=== PATIENT | male | born 1975 | race Caucasian/White ===

== ENCOUNTER 2022-11-07 14:53 | Outpatient (CLI) | payer BC, SELFPAY ==
[2022-11-07 15:47] LABS: Influenza A QL RT-PCR Negative (Negative); Influenza B QL RT-PCR Negative (Negative); SARS-CoV-2 RNA PCR Negative
== END 2022-11-07 14:54 | disposition home or self-care (01) ==
LOC: ANHLAB 15:01
PROVIDERS: PCP Family Medicine; Visit Provider Physician Assistant
DX: R52 Pain, unspecified (principal); R50.9 Fever, unspecified; Z20.822 Contact with and (suspected) exposure to COVID-19
CPT/HCPCS: 87636

== ENCOUNTER 2023-01-04 00:47 | Day surgery (SDC) | payer BC, SELFPAY ==
[2022-12-20 15:39] VITALS: BMI 36.0
--- NOTE | 2023-01-03 19:26 | P.HP_ITS ---
History of Present Illness History of Present Illness Consent: Risks, benefits, and alternatives have been discussed and questions answered. Patient agrees to proceed with procedure. Chief complaint: neoplasm screening Narrative: Jared Lomeli is a 47 year old male here for colon cancer screening Review of Systems Review of Systems: All systems reviewed & are unremarkable except as noted in HPI and below PMFSH Past Medical History Medical History Dyslipidemia Family history of prostate cancer in father GERD (gastroesophageal reflux disease) Obesity Surgical History Surgical History History of left knee surgery 1995 and 1999 for meniscus repair Family History Family History Mother Gastric cancer Heart disease Sibling Patient's sister is in good health Father Malignant neoplasm of prostate Social History Social History Smoking status: Former smoker Tobacco type: cigarettes Second hand tobacco smoke exposure: No Smoking end date: 12/20/19 Alcohol intake: never Substance use: never Substance use type: does not use Lack of Transportation: No Lack of Food: Never True Current Housing: I Have Housing Concerned About Future Housing: No Difficulty Paying Gas/Electric Bills: No Difficulty Paying for Meds: No Currently Unemployed: No Education: Decline to Answer Difficulty w/ Childcare or Family Care: No Living arrangements: with family Additional living arrangements comments: and son Occupation/Education: occupation Gender identity (if verbalized by the patient): Male Sexual Orientation (if Verbalized by the Patient): Straight or Heterosexual Spiritual care concerns: No Agree to blood products: Yes Meds Home Medications and Allergies Home Medications Medication Instructions Recorded Confirmed Type omeprazole 20 mg capsule,delayed 20 mg PO DAILY 12/10/22 01/04/23 History release Allergies Allergy/AdvReac Type Severity Reaction Status Date / Time codeine Allergy Unknown ITCHING Verified 01/04/23 08:17 Penicillins Allergy Unknown puritis Verified 01/04/23 08:17 Exam Resp: Auscultation: clear to auscultation bilaterally Cardio: Rate: regular rate Rhythm: regular rhythm GI: GI Palp: Yes Soft to palpation and No Tenderness to palpation present (GI) Assessment and Plan Assessment and plan (1) Colon cancer screening: Code(s): Z12.11 - Encounter for screening for malignant neoplasm of colon Status: Acute Assessment and Plan: Colonoscopy with possible biopsy or polypectomy or cautery or injection of subs tances.
[2023-01-04 08:07] VITALS: BP 130/89; PULSE 83; RESP 18; TEMP 35.8; O2SAT 98; BMI 35.4
[2023-01-04] MEDS: LACTATED RINGERS 1,000 ML 150 ML IV CONT (08:31)
--- NOTE | 2023-01-04 08:38 | WPDANESEPPF ---
Anes - Initial Pre Proc Eval Procedure: Operation Date: 01/04/23 09:30 Proposed Procedures p Screening Colonoscopy - José Jason MD Date/Time: 01/04/23 08:38 Surgeon: José Jason MD Pre Op Diagnosis: neoplasm screening Patient Data Age: 47 Gender: M Height: 1.88 m Weight: 125.2 kg Last Vital Signs Temp 35.8 C L 01/04/23 08:07 Pulse 83 01/04/23 08:07 Resp 18 01/04/23 08:07 BP 130/89 01/04/23 08:07 Pulse Ox 98 01/04/23 08:07 O2 Del Method Room Air 01/04/23 08:07 Allergies Allergy/AdvReac Type Severity Reaction Status Date / Time codeine Allergy Unknown ITCHING Verified 01/04/23 08:17 Penicillins Allergy Unknown puritis Verified 01/04/23 08:17 Home Medications Medication Instructions Recorded Confirmed Type omeprazole 20 mg capsule,delayed 20 mg PO DAILY 12/10/22 01/04/23 History release Patient hx anesthesia problems: none Family hx anesthesia problems: none Results Review: All pre-operative results and documents have been reviewed as part of the pre-operative evaluation. [facility] Past Medical History Medical History (Updated 01/04/23 @ 08:38 by Martínez Hale MD) Dyslipidemia Family history of prostate cancer in father GERD (gastroesophageal reflux disease) Obesity Surgical History Surgical History History of left knee surgery 1995 and 1999 for meniscus repair Family History Family History Mother Gastric cancer Heart disease Sibling Patient's sister is in good health Father Malignant neoplasm of prostate Social History Social History Smoking status: Former smoker Tobacco type: cigarettes Second hand tobacco smoke exposure: No Smoking end date: 12/20/19 Alcohol intake: never Substance use: never Substance use type: does not use Lack of Transportation: No Lack of Food: Never True Current Housing: I Have Housing Concerned About Future Housing: No Difficulty Paying Gas/Electric Bills: No Difficulty Paying for Meds: No Currently Unemployed: No Education: Decline to Answer Difficulty w/ Childcare or Family Care: No Living arrangements: with family Additional living arrangements comments: and son Occupation/Education: occupation Gender identity (if verbalized by the patient): Male Sexual Orientation (if Verbalized by the Patient): Straight or Heterosexual Spiritual care concerns: No Agree to blood products: Yes Anes - Eval Final PreProcedure Day of Procedure 01/04/23 08:38 Patient weight: obese Heart: regular rate and rhythm Lungs: clear to auscultation Airway: Mallampati scale class II Neurological: alert and oriented Last oral intake: >/= 8 hours ASA classification: II Emergent: no Anesthetic plan: proceed Anesthesia type and monitoring: general GIVS and standard monitoring Results Review: All pre-operative results and documents have been reviewed as part of the pre-operative evaluation. Informed Consent: The patient's anesthetic plan and its attendant risks and benefits were discussed with the patient/family/POA. Questions were solicited and answers provided to the satisfaction of the patient/family/POA.
[2023-01-04 09:42] VITALS: BP 109/68; PULSE 73; RESP 16; O2SAT 95
[2023-01-04 09:52] VITALS: BP 114/73; PULSE 67; RESP 20; O2SAT 97
[2023-01-04 10:02] VITALS: BP 127/87; PULSE 71; RESP 20; O2SAT 95
== END 2023-01-04 10:10 | disposition home or self-care (01) ==
PROVIDERS: PCP Family Medicine; Visit Provider Internal Medicine Gastroenterology
PROC: 0DJD8ZZ Inspection of Lower Intestinal Tract, Via Natural or Artificial Opening Endoscopic (ICD-10-PCS; CPT 45378; principal; 2023-01-04 09:30)
DX: Z12.11 Encounter for screening for malignant neoplasm of colon (principal); K21.9 Gastro-esophageal reflux disease without esophagitis; Z87.891 Personal history of nicotine dependence; E66.9 Obesity, unspecified; Z68.35 Body mass index [BMI] 35.0-35.9, adult
CPT/HCPCS: 45378; J2704; J7120

== ENCOUNTER → 2024-01-02 09:00 | Outpatient (CLI) | payer BC, SELFPAY ==
--- NOTE | 2024-02-04 10:16 | SLEEP ---
pt instructed on using the Watch Pat Disposable device on 01/02/24. Pt was notified on 01/22/24, stated he was performing the study that night. patient was called on 01/28/24 and he stated to the tech,that he was not going to perform the study and would bring the device back to the sleep center. He brought it back on 01/31/24.
== END ==
PROVIDERS: PCP Family Medicine; Visit Provider Family Medicine
DX: R40.0 Somnolence (principal); R29.818 Other symptoms and signs involving the nervous system
CPT/HCPCS: 99199

== ENCOUNTER 2024-02-13 10:19 | Outpatient (CLI) | payer BC, SELFPAY ==
--- NOTE | ~2024-02-13 | NM_ITS ---
EXAMINATION: NM stress w perf spect multi DATE: 02/13/2024 13:53 INDICATION: Chest pain. TECHNIQUE: Rest images were obtained following intravenous administration of 9 mCi Tc99m tetrofosmin (Myoview). The patient performed an exercise activity. At peak exercise, 28.8 mCi Tc99m tetrofosmin ( Myoview) was administered intravenously, and stress images were obtained. Data was reconstructed into short axis and horizontal and vertical long axis SPECT images. Gated SPECT images were also obtained . COMPARISON: None. FINDINGS: There is no definite reversible or fixed perfusion abnormality to suggest ischemia or infar ction. There is no segmental wall motion abnormality. Left ventricular ejection fraction measures 5 7%. IMPRESSION: 1. No definite ischemia or infarct. 2. Normal left ventricular ejection fraction measuring 57%. Reviewed, dictated and finalized at location A.
--- NOTE | 2024-02-13 10:38 | EST_ITS ---
Patient Info Name: Jared Lomeli Age: 48 years : 1975 Gender: Male Ht: 74 in Wt: 290 lbs BSA: 2.67 m2 HR: 61 bpm BP: 127 / 77 mmHg Heart Rhythm: Sinus Rhythm Exam Date: 02/13/2024 11:37 AM Exam Location: Echo Lab Patient Status: Outpatient Admit Date: 02/13/2024 Staff Ordering Physician: Juno Vazquez MD Attending Provider: Juno Vazquez MD Exercise Technologist: Cecille Paez CT Exercise Physician: Andrea Arce DO Exam Type: CA stress test treadmill w NM Study Info Indications R07.89 - Other chest pain A nuclear stress test was performed. Summary 1. 1. Negative Lorenzo exercise stress test for ischemic ST changes by ECG criteria. 2. 2. Reduced functional capacity, achieving 9 METs of workload. 3. 3. Appropriate HR response to exercise. 4. 4. Appropriate HR recovery at 1 minute post exercise. 5. 5. Nuclear scan to follow and will be reported separately. Please correlate with it. 6. 6. Patient informed of the above results. Protocol: Lorenzo Stress ECG Details Stage: REST Duration (min): 1 min : 8 sec Speed (mph): 0.0 Grade (%): 0 HR (bpm): 63 SBP (mmHg): 127 DBP (mmHg): 77 METS: --- Stage: REST Duration (min): 6 min : 56 sec Speed (mph): 0.0 Grade (%): 0 HR (bpm): 73 SBP (mmHg): 127 DBP (mmHg): 77 METS: --- Stage: STAGE 1 Duration (min): 1 min : 0 sec Speed (mph): 1.7 Grade (%): 10 HR (bpm): 104 SBP (mmHg): 127 DBP (mmHg): 77 METS: --- Stage: STAGE 1 Duration (min): 2 min : 0 sec Speed (mph): 1.7 Grade (%): 10 HR (bpm): 112 SBP (mmHg): 127 DBP (mmHg): 77 METS: --- Stage: STAGE 1 Duration (min): 3 min : 0 sec Speed (mph): 1.7 Grade (%): 10 HR (bpm): 114 SBP (mmHg): 174 DBP (mmHg): 84 METS: --- Stage: STAGE 2 Duration (min): 1 min : 0 sec Speed (mph): 2.5 Grade (%): 12 HR (bpm): 128 SBP (mmHg): 174 DBP (mmHg): 84 METS: --- Stage: STAGE 2 Duration (min): 2 min : 0 sec Speed (mph): 2.5 Grade (%): 12 HR (bpm): 136 SBP (mmHg): 167 DBP (mmHg): 89 METS: --- Stage: STAGE 2 Duration (min): 3 min : 0 sec Speed (mph): 2.5 Grade (%): 12 HR (bpm): 144 SBP (mmHg): 167 DBP (mmHg): 89 METS: --- Stage: STAGE 3 Duration (min): 1 min : 0 sec Speed (mph): 3.4 Grade (%): 14 HR (bpm): 154 SBP (mmHg): 199 DBP (mmHg): 91 METS: --- Stage: STAGE 3 Duration (min): 1 min : 15 sec Speed (mph): 3.4 Grade (%): 14 HR (bpm): 154 SBP (mmHg): 199 DBP (mmHg): 91 METS: --- Stage: RECOVERY Duration (min): 0 min : 44 sec Speed (mph): 0.0 Grade (%): 0 HR (bpm): 137 SBP (mmHg): 199 DBP (mmHg): 91 METS: --- Stage: RECOVERY Duration (min): 1 min : 44 sec Speed (mph): 0.0 Grade (%): 0 HR (bpm): 118 SBP (mmHg): 199 DBP (mmHg): 91 METS: --- Stage: RECOVERY Duration (min): 2 min : 44 sec Speed (mph): 0.0 Grade (%): 0 HR (
== END 2024-02-13 10:20 | disposition home or self-care (01) ==
LOC: ANHCARD 10:21
PROVIDERS: PCP Family Medicine; Visit Provider Family Medicine
DX: E78.5 Hyperlipidemia, unspecified (principal); R07.9 Chest pain, unspecified
CPT/HCPCS: 78452; 93017; A9502

== ENCOUNTER 2024-05-26 14:30 | Emergency (ER) | payer OTHER, SELFPAY ==
--- NOTE | ~2024-05-26 | XR_ITS ---
EXAMINATION: XR ribs RT 2V w CXR 2V DATE: 05/26/2024 15:34 INDICATION: Chest injury. TECHNIQUE: Frontal and lateral views of the chest and 2 views on 3 radiographs of the right ribs were obtained. COMPARISON: Chest 2 views 02/22/2012 FINDINGS: CHEST TWO VIEWS: There is no pneumonia, pleural effusion, or pneumothorax. The heart size is normal. RIGHT RIBS: There is no rib fracture. IMPRESSION: 1. No rib fracture. Reviewed, dictated and finalized at location E. IMPRESSION: 1. No rib fracture.
[2024-05-26 15:03] VITALS: BP 144/83; PULSE 72; RESP 18; TEMP 36.1; O2SAT 99
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
== END 2024-05-26 16:30 | disposition home or self-care (01) ==
PROVIDERS: Emergency Provider Nurse Practitioner Family; PCP Family Medicine
DX: S20.211A Contusion of right front wall of thorax, initial encounter (principal); E78.5 Hyperlipidemia, unspecified; E66.9 Obesity, unspecified; Z68.34 Body mass index [BMI] 34.0-34.9, adult; K21.9 Gastro-esophageal reflux disease without esophagitis; Z87.891 Personal history of nicotine dependence; V84.0XXA Driver of special agricultural vehicle injured in traffic accident, initial encounter
CPT/HCPCS: 71046; 71100; 99283

== ENCOUNTER 2025-04-13 10:57 | Outpatient (CLI) | payer BC, SELFPAY ==
--- NOTE | 2025-04-28 20:04 | P.SLEEP_ITS ---
Sleep Study Date of Study: 04/13/25 Ordering Provider: Shalini Vazquez MD Interpreting Physician: Brenda Warren MD Sleep Study Type: Split Polysomnogram Height: 1.88 m Weight: 136.078 kg Body Mass Index: 38.5 Neck Circumference (inches): 19 [place]: 9 Reason for Sleep Study Tired after sleeping, snoring, takes naps Sleep History Jared Lomeli is a 49-year-old man with loud snoring and non-restorative sleep. He rarely awakens from sleep feeling short of breath. He occasionally wakes at night with heartburn, belching or coughing.??He frequently snores, and frequently snores loudly enough that others complain. He occasionally has trouble sleeping when he has a cold. He rarely wakes up gasping for breath during the night. He rarely has breathing problems at night observed by others. He never sweats excessively at night. He never notices his heart pounding or beating irregularly during the night. He occasionally falls asleep during the day. He never falls asleep involuntarily, never falls asleep while driving. He never experiences loss of muscle tone with strong emotion. He never has daytime difficulty at work due to excessive sleepiness. He never feels paralyzed on waking or falling asleep. He never experiences vivid dreams upon waking or falling asleep. He never feels afraid of going to sleep. He never has nightmares. He occasionally recalls his dreams. He frequently has thoughts racing through his mind. He never feels sad or depressed. He occasionally feels anxiety. He occasionally notices parts of his body jerk. He never kicks during the night. He occasionally feels crawling or aching feelings in his legs. He rarely feels leg pain at night. He never has morning jaw pain, never grinds his teeth at night. He occasionally feels bothered by pain during the day, never awakened by pain during the night. He frequently wakes up feeling stiff in the morning, and he frequently wakes feeling sore or achy. He occasionally awakens with pain in his neck, spine, or joints. He has fatigue. Normal bedtime is 9:00 p.m., falling asleep within a half hour, waking 5 times at night, tossing and turning, returning to sleep within a few seconds. Wake time is 4:30 a.m.. He typically gets between 6 and 8 hours of sleep per night. He takes naps in the day, and a short nap lasting 10 to 15 minutes may be refreshing. He is drowsy for 3 hours after waking, and feels better in the afte rnoon compared to other times of day. Habits:??Tobacco:quit 3 months ago Caffeine:3 per day Alcohol: none Recreational substances: none [facility] Past Medical History Medical History Migraine without aura Family history of gastric cancer mother Obesity Family history of prostate cancer in father Dyslipidemia GERD (gastroesophageal reflux disease) Surgical History Surgical History History of left knee surgery 1995 and 1999 for meniscus repair Family History Family History Mother Gastric cancer Heart disease Sibling Patient's sister is in good health Father Malignant neoplasm of prostate Social History Social History Smoking status: Former smoker Tobacco type: cigarettes Second hand tobacco smoke exposure: No Smoking end date: 12/01/19 Alcohol intake: never Substance use: never Substance use type: does not use Lack of Transportation: No Lack of Food: Never True Current Housing: I Have Housing Concerned About Future Housing: No Difficulty Paying Gas/Electric Bills: No Difficulty Paying for Meds: No Currently Unemployed: No Education: Decline to Answer Difficulty w/ Childcare or Family Care: No Living arrangements: with family Additional living arrangements comments: and son Occupation/Education: occupation Gender identity (if verbalized by the patient): Male Sexual Orientation (if Verbalized by the Patient): Straight or Heterosexual Spiritual care concerns: No Agree to blood products: Yes Medications Home Medications ?Medication ?Instructions ?Recorded ?Confirmed ?Type omeprazole 20 mg capsule,delayed 20 mg PO DAILY 12/10/22 04/14/25 History release rizatriptan 10 mg disintegrating See Rx Instructions PO .COMPLEX #7 12/11/23 04/14/25 Rx tablet tabs hydroxyzine HCl 25 mg tablet See Rx Instructions PO QHS PRN 04/09/25 04/14/25 Rx insomnia #90 tabs Sleep Procedure A full night polysomnogram using the [employer] SleepTrutap multi-channel system recorded the standard physiologic parameters including EEG, EOG, submentalis EMG, anterior tibialis EMG, EKG, body position, nasal and oral airflow using nasal pressure sensor and thermistor. Respiratory parameters of chest and abdominal movements were recorded with Respiratory Inductance Plethysmography belts. Oxygen saturation was recorded by pulse oximetry. Video monitoring was also performed. Sleep stages, periodic limb movements, and EEG arousals were scored in 30 second epochs according to the criteria of the AASM Scoring Manual. The Apnea-Hypopnea Index was calculated using [facility] guidelines for definition of hypopnea with 4% O2 desaturations while scoring respiratory events, He self administered hydroxyzine 25 mg at the start of the study. The patienet met criteria to start CPA with a baseline apnea hypopnea index of 78.6 and desaturation to 72%. He used a medium ResMed AirFit F30i full face mask and heated humidity, started at 5 cm, titrated to 7 cm, 9 cm, 11 and 13 cm. At CPAP 13 cm, he spent 84.5 minutes on bed, 4.5 minutes awake, 54.5 minutes in NREM, and 25.5 minutes in REM. Sleep efficiency was 94.7%. THe residual AHI was 1.5 and the lowest saturation was 93%. He had REM in the right lateral position at CPAP 13. He had supine REM on CPAP 11 cm. He had increased leg movements during the titration which is often seen as a response to starting positive airway pressure, called CPAP kick. This resolves with treatment within a month. Sleep Architecture During the diagnostic portion of the study, the total recording time was 162.8 minutes. The total sleep time was 132.0 minutes. Sleep latency was 5.8 minutes. REM latency was 116.0 minutes. Sleep Efficiency was 81.1%. The patient had 27 awakenings for an awakening index of 12.3. Wake after sleep onset time was 25.0 minutes. The patient spent 43.5 minutes, 33.0% of total sleep time in Stage N1. The patient spent 66.5 minutes, 50.4% in Stage N2. The patient spent 2.0 minutes, 1.5% in Stage N3. The patient spent 20.0 minutes, 15.2% in Stage REM sleep. At 11:54:33 PM the patient was placed on PAP treatment and was titrated between CPAP 5 and 13 cm, see procedure note. During the treatment portion of the study, the total recording time was 306.9 minutes. The total sleep time was 283.0 minutes. Sleep latency was 11.5 minutes. REM latency was 48.5 minutes. Sleep Efficiency was 92.2%. Wake after Sleep Onset time was 12.0 minutes. The patient spent 12.0 minutes, 4.2% of total sleep time in Stage N1. The patient spent 126.0 minutes, 44.5% in Stage N2. The patient spent 59.5 minutes, 21.0% in Stage N3. The patient spent 85.5 minutes, 30.2% in Stage REM. Respiratory Analysis During the diagnostic portion of the study, the patient had 159 hypopneas, 15 obstructive apneas, 1 mixed apnea, and 1 central apnea for an overall Apnea Hypopnea Index of 78.6 events per hour. The REM Apnea Hypopnea Index was 54.0. The NREM Apnea Hypopnea Index was 83.0. The patient had a Central Apnea Hypopnea Index of 0.5. There were no Respiratory Effort Related Arousals. The Respiratory Disturbance Index is 80.5 events per hour. There was no evidence of Bonifacio- Olivares Respirations. During the treatment portion of the study, the patient had 40 hypopneas, no obstructive apneas, 1 mixed apnea, and 3 central apneas for an overall Apnea Hypopnea Index of 9.3 events per hour. The REM Apnea Hypopnea Index was 6.3. The NREM Apnea Hypopnea Index was 10.6. The patient had a Central Apnea Hypopnea Index of 0.6. There were no Respiratory Effort Related Arousals. The Respiratory Disturbance Index is 11.4 events per hour. There was no evidence of Bonifacio- Olivares Respirations. Arousals During the diagnostic portion of the study, there were a total of 125 arousals for an arousal index of 56.8. There were 82 respiratory arousals for an index of 37.3. There were no periodic limb movement arousals. There was 1 isolated limb movement arousal for an index of 0.5. There were 42 spontaneous arousals for an index of 19.1. During the treatment portion of the study, there were a total of 62 arousals for an index of 13.1. There were 11 respiratory arousals for an index of 2.3. There were 17 periodic limb movement arousals for an index of 3.6. There were 2 isol ated limb movement arousals for an index of 0.4. There were 33 spontaneous arousals for an index of 7.0. Periodic Limb Movements During the diagnostic portion of the study, the patient had 4 isolated limb movements with an index of 1.8. The patient had no periodic limb movements with an index of -. The patient had a total of 4 limb movements with a total limb movement index of 1.8. During the treatment portion of the study, the patient had 19 isolated limb movements with an index of 4.0. The patient had 328 periodic limb movements with an index of 69.5. The patient had a total of 347 limb movements with a total limb movement index of 73.6. Oximetry Data During the diagnostic portion of the study, the patient had an average oxygen saturation of 91.7 in wake with a minimum oxygen saturation of 77% and a maximum oxygen saturation of 99%. The patient had an average oxygen saturation of 90.3% in sleep with a minimum oxygen saturation of 72.0% and a maximum oxygen saturation of 99.0%. The patient had 190 oxygen desaturations resulting in an Oxygen Desaturation Index of 86.4. The patient spent 48.7 minutes, 29,9% of total sleep time with an oxygen saturation less than 88%. During the treatment portion of the study, the patient had an average oxygen saturation of 95.3% in wake with a minimum oxygen saturation of 89% and a maximum oxygen saturation of 98%. The patient had an average oxygen saturation of 93.3% in sleep with a minimum oxygen saturation of 81% and a maximum oxygen s aturation of 98%. The patient had 60 oxygen desaturations resulting in an Oxygen Desaturation Index of 12.7. The patient spent 5.8 minutes, 1.9% of total sleep time with an oxygen saturation less than 88%. Snoring Profile Snoring was present on the baseline, eliminated during the titration. Cardiac Profile During the diagnostic portion of the study, the EKG showed normal sinus rhythm. The average pulse rate was 67 bpm. The minimum pulse rate was 47 bpm. The maximum pulse rate was 96 bpm. No arrhythmias noted. During the treatment portion of the study, the EKG showed normal sinus rhythm. The average pulse rate was 71 bpm, minimum pulse rate was 57 bpm, maximum pulse rate was 102 bpm. No arrhythmias noted. EEG Profile EEG was unremarkable, no evidence of seizures. Assessment and Plan Assessment and Plan (1) Obstructive sleep apnea: Code(s): G47.33 - Obstructive sleep apnea (adult) (pediatric) Status: Acute Assessment and Plan: This split night sleep study April 13, 2025 shows extremely severe obstructive sleep apnea, the baseline apnea hypopnea index is 78.6 with desaturation to 72%, worse in the supine position, successfully treated with CPAP 13 cm using a medium ResMed AirFit F30i full face mask and heated humidity. At CPAP 13 cm, he spent 84.5 minutes on bed, 4.5 minutes awake, 54.5 minutes in NREM, and 25.5 minutes in REM. Sleep efficiency was 94.7%. THe residual AHI was 1.5 and the lowest saturation was 93%. He had REM in the right lateral position at CPAP 13. He had supine REM on CPAP 11 cm. He had increased leg movements during the titration which is often seen as a response to starting positive airway pressure, called CPAP kick. This often resolves with treatment within a month. The patient should be prescribed this ResMed equipment as well as tubing, filters and reservoir. This should be used with all episodes of sleep. Compliance should be reviewed within 31-90 days of starting therapy for usage greater than 4 hours per night greater than 70% of the nights. The patient should be asked about symptoms such as excessive daytime sleepiness, quality of sleep, decreased nocturia, increased mental functioning such as memory, mood, and concentration. BMI is 38.5. Weight management is advised. Clinical data suggests that weight loss of 10% can reduce the severity of respiratory events and snoring and improve AHI by as much as 25%. Data The data obtained during this sleep study is adequate for interpretation. Certification This sleep study has been reviewed by a board certified sleep medicine physician.
[2025-05-06 13:37] VITALS: BMI 38.5
== END 2025-04-14 05:40 | disposition home or self-care (01) ==
LOC: ANHCSM 11:02
PROVIDERS: PCP Family Medicine; Visit Provider Family Medicine
DX: G47.33 Obstructive sleep apnea (adult) (pediatric) (principal)
CPT/HCPCS: 95811

== ENCOUNTER 2025-07-29 00:11 | Day surgery (SDC) | payer BC, SELFPAY ==
[2025-07-14 13:16] VITALS: BMI 38.5
[2025-07-29 07:48] VITALS: BP 134/92; PULSE 88; RESP 16; TEMP 36.1; O2SAT 99
[2025-07-29 07:49] VITALS: BMI 39.4
[2025-07-29] MEDS: LACTATED RINGERS 1,000 ML 150 ML IV CONT (07:56)
--- NOTE | 2025-07-29 08:05 | P.PNAN_ITS ---
Anes - Initial Pre Proc Eval Procedure: Operation Date: 07/29/25 09:00 Proposed Procedures p Esophagogastroduodenoscopy - David Fofana MD Date/Time: 07/29/25 08:05 Surgeon: David Fofana MD Pre Op Diagnosis: Family Hx of malignant neoplasm of digestive organ Patient Data Age: 49 Gender: M Height: 1.88 m Weight: 139.2 kg Last Vital Signs Temp 36.1 C L 07/29/25 07:48 Pulse 88 07/29/25 07:48 Resp 16 07/29/25 07:48 BP 134/92 H 07/29/25 07:48 Pulse Ox 99 07/29/25 07:48 O2 Del Method Room Air 07/29/25 07:48 Allergies Allergy/AdvReac Type Severity Reaction Status Date / Time codeine Allergy Unknown ITCHING Verified 07/29/25 07:46 Penicillins Allergy Unknown puritis Verified 07/29/25 07:46 Home Medications ?Medication ?Instructions ?Recorded ?Confirmed ?Type omeprazole 20 mg capsule,delayed 20 mg PO DAILY 07/29/25 History release rizatriptan 10 mg disintegrating See Rx Instructions P O .COMPLEX #7 12/11/23 07/14/25 Rx tablet tabs hydroxyzine HCl 25 mg tablet See Rx Instructions PO QH S PRN 04/09/25 07/14/25 Rx insomnia #90 tabs CPAP #1 ea 05/06/25 07/14/25 Rx Patient hx anesthesia problems: none Family hx anesthesia problems: none Results Review: All pre-operative results and documents have been reviewed as part of the pre-operative evaluation. [facility] Past Medical History Medical History (Updated 07/28/25 @ 14:24 by Bradly Decker DO) LAUREL (obstructive sleep apnea) Migraine without aura Family history of gastric cancer mother Obesity Family history of prostate cancer in father Dyslipidemia GERD (gastroesophageal reflux disease) Surgical History Surgical History History of left knee surgery 1995 and 1999 for meniscus repair Family History Family History Mother Gastric cancer Heart disease Sibling Patient's sister is in good health Father Malignant neoplasm of prostate Social History Social History Smoking status: Former smoker Tobacco type: cigarettes Second hand tobacco smoke exposure: No Smoking end date: 12/01/19 Alcohol intake: never Substance use: never Substance use type: does not use Lack of Transportation: No Lack of Food: Never True Current Housing: I Have Housing Concerned About Future Housing: No Difficulty Paying Gas/Electric Bills: No Difficulty Paying for Meds: No Currently Unemployed: No Education: Decline to Answer Difficulty w/ Childcare or Family Care: No Living arrangements: with family Additional living arrangements comments: and son Occupation/Education: occupation Gender identity (if verbalized by the patient): Male Sexual Orientation (if Verbalized by the Patient): Straight or Heterosexual Spiritual care concerns: No Agree to blood products: Yes Anes - Eval Final PreProcedure Day of Procedure 07/29/25 08:05 Patient weight: obese Heart: regular rate and rhythm Lungs: clear to auscultation Airway: Mallampati scale class II Neurological: alert and oriented Last oral intake: >/= 8 hours ASA classification: III Emergent: no Anesthetic plan: proceed Anesthesia type and monitoring: general GIVS and standard monitoring Results Review: All pre-operative results and documents have been reviewed as part of the pre- operative evaluation. Informed Consent: The patient's anesthetic plan and its attendant risks and benefits were discussed with the patient/family/POA. Questions were solicited and answers provided to the satisfaction of the patient/family/POA.
--- NOTE | 2025-07-29 08:46 | PM.HPGS ---
History of Present Illness History of Present Illness Consent: Risks, benefits, and alternatives have been discussed and questions answered. Patient agrees to proceed with procedure. Chief complaint: Family Hx of malignant neoplasm of digestive organ Narrative: Jared Lomeli is a 49 year old male here for first egd, h/o bloating, also mother had gastric cancer Review of Systems Review of Systems: All systems reviewed & are unremarkable except as noted in HPI and below PMFSH Past Medical History Medical History (Updated 07/28/25 @ 14:24 by Bradly Decker DO) LAUREL (obstructive sleep apnea) Migraine without aura Family history of gastric cancer mother Obesity Family history of prostate cancer in father Dyslipidemia GERD (gastroesophageal reflux disease) Surgical History Surgical History History of left knee surgery 1995 and 1999 for meniscus repair Family History Family History Mother Gastric cancer Heart disease Sibling Patient's sister is in good health Father Malignant neoplasm of prostate Social History Social History Smoking status: Former smoker Tobacco type: cigarettes Second hand tobacco smoke exposure: No Smoking end date: 12/01/19 Alcohol intake: never Substance use: never Substance use type: does not use Lack of Transportation: No Lack of Food: Never True Current Housing: I Have Housing Concerned About Future Housing: No Difficulty Paying Gas/Electric Bills: No Difficulty Paying for Meds: No Currently Unemployed: No Education: Decline to Answer Difficulty w/ Childcare or Family Care: No Living arrangements: with family Additional living arrangements comments: and son Occupation/Education: occupation Gender identity (if verbalized by the patient): Male Sexual Orientation (if Verbalized by the Patient): Straight or Heterosexual Spiritual care concerns: No Agree to blood products: Yes Meds Home Medications and Allergies Home Medications ?Medication ?Instructions ?Recorded ?Confirmed ?Type omeprazole 20 mg capsule,delayed 20 mg PO DAILY 12/10/22 07/29/25 History release rizatriptan 10 mg disintegrating See Rx Instructions PO .COMPLEX #7 12/11/23 07/14/25 Rx tablet tabs hydroxyzine HCl 25 mg tablet See Rx Instructions PO QHS PRN 04/09/25 07/14/25 Rx insomnia #90 tabs CPAP #1 ea 05/06/25 07/14/25 Rx Allergies Allergy/AdvReac Type Severity Reaction Status Date / Time codeine Allergy Unknown ITCHING Verified 07/29/25 07:46 Penicillins Allergy Unknown puritis Verified 07/29/25 07:46 Vital Signs Vital Signs - 24 hr 07/29/25 07:48 Temperature 97 F L Pulse Rate 88 Respiratory Rate 16 Blood Pressure 134/92 H Pulse Oximetry 99 Oxygen Delivery Room Air Exam Const: General: comfortable and no acute distress HENMT: Face/Nose/Sinus: Normal nares present Eyes: General: appearance normal, both eyes and all related structures Neck: Neck: no JVD Resp: Auscultation: clear to auscultation bilaterally Cardio: Rate: regular rate Rhythm: regular rhythm GI: Inspection: non-distended GI Palp: Yes Soft to palpation Skin: General skin exam: normal color Neuro: General: gait normal Speech: normal speech Extrem: General: normal to inspection Psych: Mental Status: mental status grossly normal Assessment and Plan Assessment and plan (1) Abdominal bloating: Code(s): R14.0 - Abdominal distension (gaseous) Status: Acute Assessment and Plan: egd (2) Family history of gastric cancer: Code(s): Z80.0 - Family history of malignant neoplasm of digestive organs Status: Acute
--- NOTE | 2025-07-29 08:51 | S_PTH ---
PATIENT: Jared Lomeli LOC: [facility] Sun#:[id number] AGE/SX: 49/M ROOM: RE07/29/[address]: David Fofana MD : 1975 BED: DIS: 07/29/2025 SPEC #: [id number] RECD: 07/29/25 10:25 STATUS: AUBREY RICHARDSON #: [id number] BELINDA: 07/29/25 08:[address]: David Fofana DEPT: [facility] Surgical RECD BY: Benita Foy ENTERED: 07/29/25 10:26 SP TYPE: Surgical OTHR DR: Shalini Vazquez MD Tissues: A - Small Bowel Bx B - Gastric Biopsy Procedures: Hematoxylin and Eosin Stain Gross and Microscopic Level 4
[2025-07-29 08:56] VITALS: BP 168/71; PULSE 77; RESP 24; O2SAT 100
[2025-07-29 09:06] VITALS: BP 132/89; PULSE 76; RESP 18; O2SAT 96
[2025-07-29 09:16] VITALS: BP 135/89; PULSE 77; RESP 19; O2SAT 96
== END 2025-07-29 09:23 | disposition home or self-care (01) ==
PROVIDERS: PCP Family Medicine; Referring Provider Nurse Practitioner Family; Visit Provider Internal Medicine Gastroenterology
PROC: 0DJ08ZZ Inspection of Upper Intestinal Tract, Via Natural or Artificial Opening Endoscopic (ICD-10-PCS; CPT 43239; principal; 2025-07-29 09:00)
DX: K21.9 Gastro-esophageal reflux disease without esophagitis (principal); E78.5 Hyperlipidemia, unspecified; G47.33 Obstructive sleep apnea (adult) (pediatric); E66.9 Obesity, unspecified; Z68.39 Body mass index [BMI] 39.0-39.9, adult; Z99.89 Dependence on other enabling machines and devices; Z98.890 Other specified postprocedural states; Z87.891 Personal history of nicotine dependence; Z80.42 Family history of malignant neoplasm of prostate; Z80.0 Family history of malignant neoplasm of digestive organs; Z82.49 Family history of ischemic heart disease and other diseases of the circulatory system
CPT/HCPCS: 43239; 88305; J2003; J2704; J7120